=== PATIENT | female | born 1965 | race Caucasian/White ===

== ENCOUNTER 2024-10-29 10:01 | Outpatient (CLI) | payer MEDICAID ==
[~2024-10-29] VITALS: Ht 162.6 cm; Wt 53.1 kg
[~2024-10-29 10:01] MED LIST: BUPIVACAINE/MELOXICAM 14 ML VIAL IL ONE
[2024-10-29 10:28] LABS: TOTAL HEMOGLOBIN 14.4 G/dl (12.0-16.0)
[2024-10-29] MEDS ORDERED: ipratropium/albuterol 3ml nebule IH ONE (10:40)
[2024-10-29 11:14] VITALS: PULSE 67; RESP 16; O2SAT 98
[2024-10-29] MEDS: albuterol 2.5 MG/3 ML nebule NEB ONE (11:22)
[2024-10-29 11:26] VITALS: PULSE 69; RESP 18
--- NOTE | 2024-10-29 16:05 | PROCEDURE NOTE - Respiratory ---
Procedure Note-Respiratory Providers to Copies To 1: RYAN RAGSDALE MD Procedure Name: This is a complete pulmonary function study dated October 29, 2024. Hemoglobin measurement was done as part of the study. Spirometry measurements: Both the forced vital capacity and the FEV1 measurements are in the normal range. The FEV1 ratio is slightly diminished. Some of the flow rates are borderline reduced. After inhaled bronchodilator was administered there is no appreciable change in the spirometry curve. Lung volume measurements: The total lung capacity is at the upper limit of normal. There is elevation of the functional residual capacity and the residual volume measurements. This suggests some degree of hyperinflation with air trapping within the lungs. Lung diffusion measurement: The DLCO measurement is normal. The alveolar volume measurement is normal. The KVO measurement is normal. It is noted that the hemoglobin measurement is normal. Airway resistance measurement: The airway resistance is somewhat elevated. Overall conclusion: This study is abnormal. There is evidence for obstructive ventilatory defect in the mild category. The patient has evidence of borderline hyperinflation with evidence of air trapping within the lungs. These are common findings in obstructive lung disease including COPD. This patient has an abnormal inspiratory limb on the flow volume loop. This indicates possible upper airway obstruction. Specifically this shape of the flow volume curve suggests variable extrathoracic airway obstruction. This extrathoracic o bstructive process may relate to the patient's history of throat cancer and radiation therapy to the neck area. Clinical correlation is suggested. We have no previous studies for comparison. It is strongly recommended that this patient abstain from cigarette smoking. RYAN RAGSDALE MD Oct 29, 2024 16:05
== END 2024-10-29 23:59 | disposition home or self-care (01) ==
LOC: RT 10:01
PROVIDERS: ATTEND Internal Medicine Pulmonary Disease
DX: J44.9 Chronic obstructive pulmonary disease, unspecified (principal)
CPT/HCPCS: 85018; 94060; 94727; 94729; 94760; C9088